=== PATIENT | female | born 1940 | race African-American/Black ===

== ENCOUNTER 2019-07-20 14:26 | Emergency (ER) | payer OTHER ==
[~2019-07-20] VITALS: Ht 167.6 cm; Wt 73.0 kg
[2019-07-20] MEDS ORDERED: ACETAMINOPHEN 325MG TABLET PO STA (15:11)
[2019-07-20 15:56] LABS: BASOPHILS % 0.3 % (0.0-2.0); CHLORIDE 108 mEq/L (98-107); EOSINOPHILS % 0.7 % (0.0-5.0); HEMATOCRIT. 36.3 % (36.0-48.0); HEMOGLOBIN. 11.8 g/dL (12.0-16.0); LYMPHOCYTES % 18.7 % (20.0-50.0); MEAN CORPUSCULAR HEMOGLOBIN 27.9 pg (28.0-32.0); MEAN CORPUSCULAR VOLUME 85.9 fL (81.0-99.0); MEAN PLATELET VOLUME 7.9 fl (7.4-10.4); NEUTROPHILS % 71.3 % (40.0-76.0); PLATELET 292 x1000/uL (130-400); RED BLOOD CELL COUNT 4.23 mill/uL (4.2-5.4); RED CELL DISTRIBUTION WIDTH 15.1 % (11.6-14.6)
[2019-07-20 16:02] LABS: PROTHROMBIN TIME 10.5 sec (9.6-11.0)
[2019-07-20 17:03] VITALS: BP 187/81
== END 2019-07-20 17:25 | disposition home or self-care (01) ==
LOC: ER 14:26
DX: M25.562 Pain in left knee (principal); I10 Essential (primary) hypertension; M25.522 Pain in left elbow; R42 Dizziness and giddiness; E78.00 Pure hypercholesterolemia, unspecified; E11.9 Type 2 diabetes mellitus without complications; Z88.2 Allergy status to sulfonamides; W01.0XXA Fall on same level from slipping, tripping and stumbling without subsequent striking against object, initial encounter; Y93.01 Activity, walking, marching and hiking; Y92.89 Other specified places as the place of occurrence of the external cause; Y99.8 Other external cause status
CPT/HCPCS: 36415; 71045; 73080; 73562; 84484; 93005; 99284